=== PATIENT | female | born 1970 | race Caucasian/White ===

== ENCOUNTER 2016-10-20 22:05 | Emergency (ER) | payer MEDICAID ==
[~2016-10-20] VITALS: Ht 160 cm; Wt 86.2 kg
[~2016-10-20 22:05] MED LIST: PROAIR HFA0.09 MG/Ac IH
[2016-10-20 22:30] VITALS: BP 133/95
--- NOTE | 2016-10-20 22:57 | NUR ---
46 Y/O HERE W/C/O SOB, HEADACHES AND BACK PAIN X DAY. SLIGHTLY WHEEZES ON BILATERAL UPPER LOBES NOTED. NO NASAL FLARING OR OTHER SIGNS OF RESP DISTRESS NOTED AT THIS MOMENT. O2 SAT 99 %. ER MD AWARED OF IT.
--- NOTE | 2016-10-20 22:58 | NUR ---
Germania edwards in [facility] - 10/21/16 at 0016 by MEDZAK TO ER BED7
--- NOTE | 2016-10-20 23:07 | NUR ---
Patient being evaluated by physician at bedside.
[2016-10-20] MEDS ORDERED: ALBUTEROL SULFATE/IPRATROPIU 3 ML SOL IH ONE (23:10)
[2016-10-20] MEDS ORDERED: methylPREDNISolone SS 125 MG in WATER STERILE 2 ML IM ONE (23:15)
[2016-10-20 23:59] VITALS: BP 141/97
--- NOTE | 2016-10-20 23:59 | NUR ---
Patient discharged with v/s stable. Written and verbal after care instructions given and explained. Patient alert, oriented and verbalized understanding of instructions. Ambulatory with steady gait. All questions addressed prior to discharge. ID band removed. Patient advised to follow up with PMD. Rx of PREDNISONE AND ALBUTEROL SULFATE given. Patient educated on indication of medication including possible reaction and side effects. Opportunity to ask questions provided and answered.
== END 2016-10-20 23:59 | disposition home or self-care (01) ==
LOC: MED 22:14
DX: J45.901 Unspecified asthma with (acute) exacerbation (principal); R03.0 Elevated blood-pressure reading, without diagnosis of hypertension; E11.9 Type 2 diabetes mellitus without complications; K21.9 Gastro-esophageal reflux disease without esophagitis; Z88.0 Allergy status to penicillin; Z88.5 Allergy status to narcotic agent
CPT/HCPCS: 81002; 81025; 94640; 96372; 99283; J2930; J7620

== ENCOUNTER 2016-12-07 19:21 | Emergency (ER) | payer MEDICAID ==
[~2016-12-07] VITALS: Ht 160 cm; Wt 54.4 kg
[2016-12-07 19:36] VITALS: BP 142/98
--- NOTE | 2016-12-07 21:13 | NUR ---
TO ER OF1
--- NOTE | 2016-12-07 21:15 | NUR ---
46Y/F PATIENT PRESENTS TO ED WITH C/O FLU LIKE SYMPTOMS X 1 DAY . PT STATES COUGH, BODY ACHE AND EPISODE OF NASAL CONGESTION. DENIES N/V/D; SKIN IS PINK/WARM/DRY; AAOX4 WITH EVEN AND STEADY GAIT; LUNGS CLEAR BL; HR EVEN AND REGULAR; PT DENIES ANY FEVER, CP, SOB, OR COUGH AT THIS TIME; PATIENT STATES PAIN OF 4/10 AT THIS TIME; VSS; ER MD MADE AWARE OF PT STATUS.
[2016-12-07] MEDS ORDERED: KETOROLAC 30 MG/ML VIAL IM ONE (21:20)
[2016-12-07] MEDS ORDERED: ALBUTEROL SULFATE/IPRATROPIU 3 ML SOL IH ONE (21:20)
--- NOTE | 2016-12-07 21:20 | NUR ---
Patient being evaluated by DR. TAVERAS at bedside.
--- NOTE | 2016-12-07 22:10 | NUR ---
Patient discharged with v/s stable. Written and verbal after care instructions given and explained. Patient alert, oriented and verbalized understanding of instructions. Ambulatory with steady gait. All questions addressed prior to discharge. ID band removed. Patient advised to follow up with PMD. Rx of ALBUTEROL 90 MCG/ACTUATION, NAPROSYN 500 MG given. Patient educated on indication of medication including possible reaction and side effects. Opportunity to ask questions provided and answered.
[2016-12-07 22:12] VITALS: BP 121/81
== END 2016-12-07 22:10 | disposition home or self-care (01) ==
LOC: MED 19:21
PROC: 3E0F7GC Introduction of Other Therapeutic Substance into Respiratory Tract, Via Natural or Artificial Opening (ICD-10-PCS; principal; 2016-12-07)
DX: J45.909 Unspecified asthma, uncomplicated (principal); R51 Headache
CPT/HCPCS: 71010; 93005; 94640; 96372; 99284; J1885; J7620

== ENCOUNTER 2017-05-05 05:40 | Emergency (ER) | payer MEDICAID ==
[~2017-05-05] VITALS: Ht 157.5 cm; Wt 58.5 kg
[~2017-05-05 05:40] MED LIST changes: +ALBU-136 IH; -PROAIR HFA0.09 MG/Ac IH
[2017-05-05 05:43] VITALS: BP 118/84
[2017-05-05] MEDS ORDERED: LORazepam 1 MG TAB PO ONE (06:00)
[2017-05-05 07:15] VITALS: BP 118/84
== END 2017-05-05 07:15 | disposition home or self-care (01) ==
LOC: MED 05:40
DX: F41.0 Panic disorder [episodic paroxysmal anxiety] (principal); R06.02 Shortness of breath; J45.909 Unspecified asthma, uncomplicated; E11.9 Type 2 diabetes mellitus without complications; K21.9 Gastro-esophageal reflux disease without esophagitis; Z88.0 Allergy status to penicillin; Z88.5 Allergy status to narcotic agent; Z88.8 Allergy status to other drugs, medicaments and biological substances; Z79.899 Other long term (current) drug therapy
CPT/HCPCS: 99283; 99284

== ENCOUNTER 2017-05-23 09:35 | Emergency (ER) | payer MEDICAID ==
[~2017-05-23] VITALS: Ht 160 cm; Wt 57.2 kg
[2017-05-23 09:46] VITALS: BP 144/66
[2017-05-23 10:47] VITALS: BP 123/72
== END 2017-05-23 10:47 | disposition home or self-care (01) ==
LOC: MED 09:35
DX: J11.1 Influenza due to unidentified influenza virus with other respiratory manifestations (principal); J45.909 Unspecified asthma, uncomplicated; E11.9 Type 2 diabetes mellitus without complications; K21.9 Gastro-esophageal reflux disease without esophagitis; Z88.0 Allergy status to penicillin; Z88.5 Allergy status to narcotic agent; Z88.6 Allergy status to analgesic agent
CPT/HCPCS: 81002; 81025; 99283

== ENCOUNTER 2017-05-26 06:30 | Emergency (ER) | payer MEDICAID ==
[~2017-05-26] VITALS: Ht 167.6 cm; Wt 57.2 kg
[2017-05-26 06:35] VITALS: BP 124/77
[2017-05-26] MEDS: ALBUTEROL SULFATE/IPRATROPIU 3 ML SOL IH ONE (08:48)
[2017-05-26] MEDS: cefTRIAXone 1,000 MG in LIDOCAINE 1% ED 2.1 ML IM ONE (08:55)
[2017-05-26] MEDS: methylPREDNISolone SS 125 MG in WATER STERILE 2 ML IM ONE (08:56)
[2017-05-26 09:49] VITALS: BP 117/74
== END 2017-05-26 09:49 | disposition home or self-care (01) ==
LOC: MED 06:30
DX: J45.909 Unspecified asthma, uncomplicated (principal); Z88.0 Allergy status to penicillin; Z88.5 Allergy status to narcotic agent; Z88.6 Allergy status to analgesic agent; G43.909 Migraine, unspecified, not intractable, without status migrainosus; F41.9 Anxiety disorder, unspecified; K21.9 Gastro-esophageal reflux disease without esophagitis
CPT/HCPCS: 71010; 94640; 96372; 99284; J0696; J2001; J2930; J7620; Q0092

== ENCOUNTER 2017-06-28 06:15 | Emergency (ER) | payer MEDICAID ==
[~2017-06-28] VITALS: Ht 160 cm; Wt 55.8 kg
[2017-06-28 06:25] VITALS: BP 165/80
--- NOTE | 2017-06-28 06:30 | NUR ---
PATIENT PRESENTS TO ED WITH COUGH X1 DAY, WORSE TODAY AT 0500, C/O THROAT TIGHTNESS, NO DROOLING NOTED, CLEAR SPEEH HX ASTHMA, MIGRAINE, BRONCHITIS, HYPOTHYROID PT DENIES N/V/D; SKIN IS PINK/WARM/DRY; AAOX4 WITH EVEN AND STEADY GAIT; HR EVEN AND REGULAR; PT DENIES ANY FEVER, CP, SOB AT THIS TIME; PATIENT STATES PAIN OF 5/10 AT THIS TIME; VSS; PATIENT POSITIONED FOR COMFORT; HOB ELEVATED; BEDRAILS UP X2; BED DOWN. ER MD MADE AWARE OF PT STATUS.
--- NOTE | 2017-06-28 06:30 | NUR ---
Patient ambulated to bed 09.
[2017-06-28] MEDS ORDERED: methylPREDNISolone SS 125 MG/2 ML VIAL IM ONE (06:55)
[2017-06-28] MEDS ORDERED: ALBUTEROL SULFATE/IPRATROPIU 3 ML SOL IH ONE (06:55)
--- NOTE | 2017-06-28 07:08 | NUR ---
REPORT TO SHANIA SANDERS
--- NOTE | 2017-06-28 07:09 | NUR ---
RECEIVED REPORT FROM SHANIA IQBAL. RT AT BEDSIDE FOR BREATHING TREATMENT. PT AAO X4 ,LUNGS SMALL DIMINISHED.WILL CONTINUE TO MONITOR.
--- NOTE | 2017-06-28 07:09 | NUR ---
Note grace in EDM - 06/28/17 at 0722 by [facility] RECEOVED REPORT FROM SHANIA IQBAL. RT AT BEDSIDE FOR BREATHING TREATMENT. PT AAO X4 ,LUNGS SMALL DIMINISHED.WILL CONTINUE TO MONITOR.
--- NOTE | 2017-06-28 07:44 | NUR ---
x ray at bedside.
--- NOTE | 2017-06-28 07:57 | NUR ---
Patient appears to be resting comfortably in bed. Vital Signs within normal limits. Respirations even and unlabored.WILL CONTINUE TO MONITOR.
[2017-06-28 08:26] VITALS: BP 128/81
--- NOTE | 2017-06-28 08:26 | NUR ---
Patient discharged with v/s stable. Written and verbal after care instructions given and explained. Patient alert, oriented and verbalized understanding of instructions. Ambulatory with steady gait. All questions addressed prior to discharge. ID band removed. Patient advised to follow up with PMD. Rx of ZYRTEC given. Patient educated on indication of medication including possible reaction and side effects. Opportunity to ask questions provided and answered.
--- NOTE | 2017-06-28 08:30 | NUR ---
Note grace in EDM - 06/28/17 at 0837 by [facility] Patient discharged with v/s stable. Written and verbal after care instructions given and explained. Patient alert, oriented and verbalized understanding of instructions. Ambulatory with steady gait. All questions addressed prior to discharge. ID band removed. Patient advised to follow up with PMD. Rx of DEPAKOTE given. Patient educated on indication of medication including possible reaction and side effects. Opportunity to ask questions provided and answered.
== END 2017-06-28 08:26 | disposition home or self-care (01) ==
LOC: MED 06:15
DX: J45.909 Unspecified asthma, uncomplicated (principal); R06.2 Wheezing; J30.89 Other allergic rhinitis; Z79.899 Other long term (current) drug therapy; Z88.0 Allergy status to penicillin; Z88.5 Allergy status to narcotic agent; Z88.8 Allergy status to other drugs, medicaments and biological substances
CPT/HCPCS: 71010; 94640; 96372; 99283; J2930; J7620

== ENCOUNTER 2017-07-01 05:50 | Emergency (ER) | payer MEDICAID ==
[~2017-07-01] VITALS: Ht 160 cm; Wt 54.9 kg
[2017-07-01 05:54] VITALS: BP 131/82
--- NOTE | 2017-07-01 05:59 | NUR ---
PT TAKEN TO BED 11
--- NOTE | 2017-07-01 06:05 | NUR ---
came in with c/o cough,since wednesday, and sob started this morning,
--- NOTE | 2017-07-01 06:05 | NUR ---
Dr. Gilliland evaluating patient at bedside.
[2017-07-01] MEDS ORDERED: ALBUTEROL SULFATE/IPRATROPIU 3 ML SOL IH ONE (06:10)
[2017-07-01] MEDS ORDERED: methylPREDNISolone SS 125 MG/2 ML VIAL IM ONE (06:10)
--- NOTE | 2017-07-01 06:12 | NUR ---
RT AT BEDSIDE , ADMINISTERING BREATHING TREATMENT.
[2017-07-01 07:07] VITALS: BP 129/78
--- NOTE | 2017-07-01 07:07 | NUR ---
Patient discharged with v/s stable. Written and verbal after care instructions given and explained. Patient alert, oriented and verbalized understanding of instructions. Ambulatory with steady gait. All questions addressed prior to discharge. ID band removed. Patient advised to follow up with PMD. Rx of PREDNISONE, ATROVENT given. Patient educated on indication of medication including possible reaction and side effects. Opportunity to ask questions provided and answered.
== END 2017-07-01 07:07 | disposition home or self-care (01) ==
LOC: MED 05:50
DX: J45.901 Unspecified asthma with (acute) exacerbation (principal); J06.9 Acute upper respiratory infection, unspecified; E11.9 Type 2 diabetes mellitus without complications; K21.9 Gastro-esophageal reflux disease without esophagitis; Z88.0 Allergy status to penicillin; Z88.5 Allergy status to narcotic agent; Z88.6 Allergy status to analgesic agent
CPT/HCPCS: 94640; 94760; 96372; 99283; J2930; J7620

== ENCOUNTER 2017-07-15 19:11 | Emergency (ER) | payer MEDICAID ==
[~2017-07-15] VITALS: Ht 157.5 cm; Wt 55.8 kg
[2017-07-15 19:15] VITALS: BP 156/79
--- NOTE | 2017-07-15 19:18 | NUR ---
PT TAKEN TO BED 11.
--- NOTE | 2017-07-15 19:20 | NUR ---
47/F CAME IN W C/O CHEST PAIN 03/08, ACUTE ONSET, NONPROVOKED, NONRADIATING CONSTANT "PRESSURE" SINCE THIS MORNING. PT ALSO C/O OF HEADACHE AND BACK PAIN. REPORTS CHEST TIGHTNESS AND SOB, 18RR EVEN AND UNLABORED, SPEAKS AT FULL LENGTH WITHOUT DIFFICULTY, ALL LUNG SOUNDS CBTA, 99% RA, 86 HR EVEN AND REGULAR. PT NONDIAPHORETIC. PT REPORTS SHE TOOK TYLENOL THIS AM AND HELPED WITH HEADACHE. PT TOOK VENTOLIN INH BEFORE ER VISIT AND STATED MINIMAL RELIEF OF SYMPTOMS. PT PLACED ON CARDIAC MONITORING PMH: ASTHMA, HYPOTHYROIDISM
--- NOTE | 2017-07-15 19:42 | NUR ---
Patient being evaluated by physician at bedside.
[2017-07-15] MEDS ORDERED: ALBUTEROL SULFATE/IPRATROPIU 3 ML SOL IH ONE (19:45)
[2017-07-15] MEDS ORDERED: methylPREDNISolone SS 125 MG in WATER STERILE 2 ML IM ONE (19:45)
[2017-07-15 20:53] VITALS: BP 134/72
== END 2017-07-15 20:05 | disposition home or self-care (01) ==
LOC: MED 19:11
DX: J45.909 Unspecified asthma, uncomplicated (principal); R03.0 Elevated blood-pressure reading, without diagnosis of hypertension; E11.9 Type 2 diabetes mellitus without complications; K21.9 Gastro-esophageal reflux disease without esophagitis; E03.9 Hypothyroidism, unspecified; Z79.899 Other long term (current) drug therapy; Z88.0 Allergy status to penicillin; Z88.5 Allergy status to narcotic agent; Z88.8 Allergy status to other drugs, medicaments and biological substances
CPT/HCPCS: 93005; 94640; 94760; 96372; 99283; J2930; J7620

== ENCOUNTER 2017-12-07 06:00 | Emergency (ER) | payer MEDICAID ==
[~2017-12-07] VITALS: Ht 160 cm; Wt 57.2 kg
[2017-12-07 06:03] VITALS: BP 130/69
--- NOTE | 2017-12-07 06:15 | NUR ---
PT.AMBULATED TO ER BED 2
--- NOTE | 2017-12-07 06:16 | NUR ---
Pt presents to ED with red raised rash rash to right cheeck and brow, redness spreading to left cheeck, and 4cm area on righ upper arm. Pt states pain 2/10 with burning and itching. Pt states unkonw cause of rash. Pt states no respiratory distress, no SOB or dyspnea. VSS. A&Ox4. Skin warm and dry. ER MD aware. Continue to monitor.
[2017-12-07] MEDS ORDERED: diphenhydrAMINE 50 MG CAP PO ONE (06:20)
[2017-12-07] MEDS ORDERED: predniSONE 20 MG TAB PO ONE (06:45)
[2017-12-07 06:48] VITALS: BP 130/69
--- NOTE | 2017-12-07 06:48 | NUR ---
Patient discharged with v/s stable. Written and verbal after care instructions given and explained. Patient alert, oriented and verbalized understanding of instructions. Ambulatory with steady gait. All questions addressed prior to discharge. ID band removed. Patient advised to follow up with PMD. Rx of Prednisone and Benadryl given. Patient educated on indication of medication including possible reaction and side effects. Opportunity to ask questions provided and answered.
== END 2017-12-07 06:48 | disposition home or self-care (01) ==
LOC: MED 06:00
DX: R21 Rash and other nonspecific skin eruption (principal); J45.909 Unspecified asthma, uncomplicated; J21.9 Acute bronchiolitis, unspecified; E11.9 Type 2 diabetes mellitus without complications; Z88.0 Allergy status to penicillin; Z88.5 Allergy status to narcotic agent; Z88.6 Allergy status to analgesic agent; Z91.041 Radiographic dye allergy status
CPT/HCPCS: 99283; J7512; Q0163

== ENCOUNTER 2018-02-28 05:50 | Emergency (ER) | payer MEDICAID ==
[~2018-02-28] VITALS: Ht 160 cm; Wt 59.0 kg
[2018-02-28 05:56] VITALS: BP 150/88
--- NOTE | 2018-02-28 06:00 | NUR ---
PT AMBULATED TO BED 8
[2018-02-28 06:03] VITALS: BP 145/79
--- NOTE | 2018-02-28 06:03 | NUR ---
47 Y/O F BIB DAUGHTER W/C/O SOB, SORE THROAT, AND BACK PAIN SINCE LAST NIGHT. PT AAOX4, ON ROOM AIR. NO S/S OF DISTRESS NOTED. RR EVEN/UNLABORED. PT DENIES N/V/D. PT STATES PAIN IS 6/10 IN LOWER BACK THAT IS ACHING AND RADIATES TO UPPER BACK. O2 SAT: 98% ON ROOM AIR. PT STATES ONLY PMH IS ASTHMA. ALLERGIES TO IBPROHIN, PENECILLINS, AND COEDINE. ER MADE AWARE
--- NOTE | 2018-02-28 06:11 | NUR ---
Dr. Block evaluating patient at bedside.
--- NOTE | 2018-02-28 06:21 | NUR ---
Patient discharged BY DR. GARCIA with v/s stable. Written and verbal after care instructions given and explained. Patient alert, oriented and verbalized understanding of instructions. Ambulatory with steady gait. All questions addressed prior to discharge. ID band removed. Patient advised to follow up with PMD. Rx of BIAXIN FILMTAB 500MG given. Patient educated on indication of medication including possible reaction and side effects. Opportunity to ask questions provided and answered.
== END 2018-02-28 06:21 | disposition home or self-care (01) ==
LOC: MED 05:50
DX: J20.9 Acute bronchitis, unspecified (principal); J45.909 Unspecified asthma, uncomplicated; E11.9 Type 2 diabetes mellitus without complications; K21.9 Gastro-esophageal reflux disease without esophagitis; E07.9 Disorder of thyroid, unspecified; Z88.6 Allergy status to analgesic agent; Z88.0 Allergy status to penicillin
CPT/HCPCS: 99283

== ENCOUNTER 2018-05-31 06:09 | Emergency (ER) | payer MEDICAID ==
[~2018-05-31] VITALS: Ht 157.5 cm; Wt 59.0 kg
[2018-05-31 06:14] VITALS: BP 136/82
--- NOTE | 2018-05-31 06:17 | NUR ---
TO BED # 3 AMBULATORY.
--- NOTE | 2018-05-31 06:25 | NUR ---
PT TAKEN TO BED 8
[2018-05-31] MEDS ORDERED: ALBUTEROL SULFATE/IPRATROPIU 3 ML SOL IH ONE (06:30)
--- NOTE | 2018-05-31 06:43 | NUR ---
Respiratory Therapist at bedside for respiratory intervention.
--- NOTE | 2018-05-31 07:15 | NUR ---
received report from rakesh ortiz for continuity of care.
--- NOTE | 2018-05-31 07:37 | NUR ---
dr ramos at bed side for pt evaluation
[2018-05-31 07:47] VITALS: BP 132/81
--- NOTE | 2018-05-31 07:49 | NUR ---
Patient discharged with v/s stable. Written and verbal after care instructions given and explained. Patient alert, oriented and verbalized understanding of instructions. Ambulatory with steady gait. All questions addressed prior to discharge. ID band removed. Patient advised to follow up with PMD. Rx of PREDNISONE/ZANTAC/ALBUTEROL given. Patient educated on indication of medication including possible reaction and side effects. Opportunity to ask questions provided and answered.
== END 2018-05-31 07:49 | disposition home or self-care (01) ==
LOC: MED 06:09
DX: J45.901 Unspecified asthma with (acute) exacerbation (principal); K21.9 Gastro-esophageal reflux disease without esophagitis; E11.9 Type 2 diabetes mellitus without complications; Z88.0 Allergy status to penicillin; Z88.5 Allergy status to narcotic agent; Z88.6 Allergy status to analgesic agent
CPT/HCPCS: 94640; 99283; J7620

== ENCOUNTER 2018-06-13 21:14 | Emergency (ER) | payer MEDICAID ==
[~2018-06-13] VITALS: Ht 160 cm; Wt 59.0 kg
[2018-06-13 21:17] VITALS: BP 140/74
[2018-06-13] MEDS ORDERED: ALBU0.0912 IH (21:23)
[2018-06-13] MEDS ORDERED: predniSONE 20 MG TAB PO ONE (22:25)
[2018-06-13] MEDS ORDERED: ALBUTEROL SULFATE/IPRATROPIU 3 ML SOL IH ONE (22:25)
[2018-06-13 23:16] VITALS: BP 145/79
== END 2018-06-13 23:57 | disposition home or self-care (01) ==
LOC: MED 21:14
DX: J45.21 Mild intermittent asthma with (acute) exacerbation (principal); J44.9 Chronic obstructive pulmonary disease, unspecified; Z88.0 Allergy status to penicillin; Z88.6 Allergy status to analgesic agent; Z79.899 Other long term (current) drug therapy
CPT/HCPCS: 71045; 99283; J7512; J7620; 94640

== ENCOUNTER 2018-08-02 16:38 | Emergency (ER) | payer MEDICAID ==
[~2018-08-02] VITALS: Ht 162.6 cm; Wt 59.9 kg
[~2018-08-02 16:38] MED LIST changes: -ALBU-136 IH; +ALBU0.0912 IH
[2018-08-02 16:41] VITALS: BP 115/83
--- NOTE | 2018-08-02 16:45 | NUR ---
48 YO F BIB DAUGHTER W/ C/O DRY COUGH AND HEADACHE X TODAY AND CHEST DISCOMORT. PT STATES SHE FEELS VERY COL. NO FEVER AT THIS TIME. "I FEEL LIKE I CANT CATCH MY BREATH AND THERE IS PRESSURE". PT AAOX4, GCS 15. SPEAKING IN FULL, COMPLETE SENTENCES. RR EVEN AND UNLABORED, LUNGS BL CLEAR. BED DOWN, BEDRAIL UP X 1, ER MD AWARE AND NOTIFIED OF PT STATUS. HX ASTHMA RX INHALER
[2018-08-02] MEDS ORDERED: ALBUTEROL 0.083% 2.5 MG/3 ML NEBU INH ONE (17:25)
[2018-08-02] MEDS ORDERED: ACETAMINOPHEN 325 MG TAB PO ONE (17:25)
--- NOTE | 2018-08-02 17:25 | NUR ---
Patient being evaluated by physician at bedside.
--- NOTE | 2018-08-02 17:30 | NUR ---
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
--- NOTE | 2018-08-02 17:35 | NUR ---
PT GETTING BREATHING TREATMENT FROM RT
[2018-08-02 19:40] VITALS: BP 112/73
--- NOTE | 2018-08-02 19:41 | NUR ---
Patient discharged with v/s stable. Written and verbal after care instructions given and explained. Patient alert, oriented and verbalized understanding of instructions. Ambulatory with steady gait. All questions addressed prior to discharge. ID band removed. Patient advised to follow up with PMD. Rx of PROMETHAZINE, TYLENOL, ALBUTEROL given. Patient educated on indication of medication including possible reaction and side effects. Opportunity to ask questions provided and answered.
== END 2018-08-02 19:40 | disposition home or self-care (01) ==
LOC: MED 16:38
DX: M79.10 Myalgia, unspecified site (principal); R68.83 Chills (without fever); R05 Cough; R06.02 Shortness of breath; R09.89 Other specified symptoms and signs involving the circulatory and respiratory systems; J44.9 Chronic obstructive pulmonary disease, unspecified; Z88.5 Allergy status to narcotic agent; Z88.0 Allergy status to penicillin; Z88.8 Allergy status to other drugs, medicaments and biological substances; Z79.899 Other long term (current) drug therapy
CPT/HCPCS: 36415; 87804; 94640; 99283; J7613

== ENCOUNTER 2018-08-04 05:30 | Emergency (ER) | payer MEDICAID ==
[~2018-08-04] VITALS: Ht 157.5 cm; Wt 59.0 kg
[2018-08-04 05:41] VITALS: BP 127/84
--- NOTE | 2018-08-04 05:41 | NUR ---
PT PRESENTS TO ED WITH AUDIBLE EXPIRATORY WHEEZING IN BILAT UPPER LOBES. O2SAT 99% AT RA. PT STATES HOME MEDICATIONS NO HELPFUL. VSS. POSITIONED IN BED FOR COMFORT. ER MD AWARE. CONTINUE TO MONITOR.
--- NOTE | 2018-08-04 05:41 | NUR ---
TO BED # 6 AMBULATORY, REPORT GIVEN TO FENG JAUREGUI
[2018-08-04] MEDS ORDERED: ALBUTEROL SULFATE/IPRATROPIU 3 ML SOL IH ONE (05:50)
--- NOTE | 2018-08-04 05:51 | NUR ---
Respiratory Therapist at bedside for respiratory intervention.
[2018-08-04] MEDS ORDERED: methylPREDNISolone SS 125 MG/2 ML VIAL IM ONE (06:05)
[2018-08-04 06:35] VITALS: BP 127/84
--- NOTE | 2018-08-04 06:35 | NUR ---
Dr. Gilliland evaluating patient at bedside.
== END 2018-08-04 06:35 | disposition home or self-care (01) ==
LOC: MED 05:30
DX: J45.901 Unspecified asthma with (acute) exacerbation (principal); Z88.0 Allergy status to penicillin; Z88.5 Allergy status to narcotic agent; Z88.6 Allergy status to analgesic agent; Z79.51 Long term (current) use of inhaled steroids
CPT/HCPCS: 94640; 96372; 99283; J2930; J7620

== ENCOUNTER 2018-10-17 19:03 | Emergency (ER) | payer MEDICAID ==
[~2018-10-17] VITALS: Ht 160 cm; Wt 62.8 kg
[2018-10-17 19:36] VITALS: BP 147/82
--- NOTE | 2018-10-17 19:39 | NUR ---
PT RETURNED TO LOBBY IN STABLE CONDITION
--- NOTE | 2018-10-17 21:44 | NUR ---
PATIENT PRESENTS TO ED WITH C/O COUGH. PT STATES OUT OF INHALER. ONLY MED HX: ASTHMA. PT STATES COUGH STARTED ABOYUT 4 DAYS AGO. PATIENT STATES PAIN OF 0/10 AT THIS TIME; ONLY C/O COUGH. VSS; PATIENT POSITIONED FOR COMFORT; HOB ELEVATED; BEDRAILS UP X2; BED DOWN. ER MD MADE AWARE OF PT STATUS.
--- NOTE | 2018-10-17 21:44 | NUR ---
PT AMBULATED TO BED 2
[2018-10-17] MEDS ORDERED: DEXAMETHASONE 10 MG/ML VIAL IM ONE (21:55)
[2018-10-17 22:20] VITALS: BP 141/85
--- NOTE | 2018-10-17 22:20 | NUR ---
Patient discharged with v/s stable. Written and verbal after care instructions given and explained. Patient alert, oriented and verbalized understanding of instructions. Ambulatory with steady gait. All questions addressed prior to discharge. ID band removed. Patient advised to follow up with PMD. Rx of MEDROL 4MG, AND MONTELUKAST SODIUM 10MG given. Patient educated on indication of medication including possible reaction and side effects. Opportunity to ask questions provided and answered.
== END 2018-10-17 22:20 | disposition home or self-care (01) ==
LOC: MED 19:03
DX: J45.901 Unspecified asthma with (acute) exacerbation (principal); Z79.899 Other long term (current) drug therapy; Z88.0 Allergy status to penicillin; Z88.5 Allergy status to narcotic agent; Z88.8 Allergy status to other drugs, medicaments and biological substances
CPT/HCPCS: 71045; 81002; 81025; 96372; 99283; J1100

== ENCOUNTER 2018-10-23 20:00 | Emergency (ER) | payer MEDICAID ==
[~2018-10-23] VITALS: Ht 160 cm; Wt 61.2 kg
[2018-10-23 20:05] VITALS: BP 135/85
--- NOTE | 2018-10-23 20:55 | NUR ---
PT AMBULATED TO BED 8
--- NOTE | 2018-10-23 21:28 | NUR ---
PT BIB FOR RASH AROUND FACE X1 WEEK. PT REPORTS NON-RADIATING BURNING/IRRITATING PAIN AROUND FACIAL RASH AT 8/10 STARTING 5 HOURS AGO, PT APPLIED HYDROCORTIZONE CREAM TO RASH WITH NO RELIEF. RASH CONSIST OF SMALL RAISED, RED SPOTS UNDER EYES. PT IN NO ACUTE DISTRESS, AIRWAY PATENT, RR SYMMETRICAL, NON LABORED WITH BREATH SOUNDS CLEAR. PT DENIES ANY NEW DETERGENT, CLOTHING, FOOD, OR MEDICATIONS. VSS. ER MD TO SEE PT.
[2018-10-23 22:06] VITALS: BP 120/81
--- NOTE | 2018-10-23 22:06 | NUR ---
Patient discharged with v/s stable. Written and verbal after care instructions given and explained. Patient alert, oriented and verbalized understanding of instructions. Ambulatory with steady gait. All questions addressed prior to discharge. ID band removed. Patient advised to follow up with PMD. Rx of HYDROCORTISONE, DOPHENHYDRAMINE, AND TOBRAMYCIN given. Patient educated on indication of medication including possible reaction and side effects. Opportunity to ask questions provided and answered.
== END 2018-10-23 22:06 | disposition home or self-care (01) ==
LOC: MED 20:00
DX: T78.40XA Allergy, unspecified, initial encounter (principal); R21 Rash and other nonspecific skin eruption; J45.909 Unspecified asthma, uncomplicated; Z88.0 Allergy status to penicillin; Z88.5 Allergy status to narcotic agent; Z88.8 Allergy status to other drugs, medicaments and biological substances; Z79.899 Other long term (current) drug therapy; X58.XXXA Exposure to other specified factors, initial encounter
CPT/HCPCS: 99283

== ENCOUNTER 2019-02-11 14:46 | Inpatient (IN) | payer MEDICAID ==
[~2019-02-11] VITALS: Ht 160 cm; Wt 60.8 kg
[2019-02-11 14:56] VITALS: BP 129/69
--- NOTE | 2019-02-11 14:58 | NUR ---
Patient to bed 8. RN evaluating patient at bedside.
--- NOTE | 2019-02-11 15:00 | NUR ---
PATIENT PRESENTS TO ED WITH ABDOMINAL PAIN RADIATING TO UPPER BACK; FREQUENCY AND BURNING WHEN URINATING. DENIES N/V/D; PT DENIES ANY FEVER; AFEBRILE AT THIS TIME; PATIENT STATES PAIN OF 10/10; POSITIONED FOR COMFORT; HOB ELEVATED; BEDRAILS UP X1; BED DOWN. PENDING ER MD EVALUATION.
[2019-02-11] MEDS ORDERED: NACL 0.9% 500 ML IV ONE (15:05)
[2019-02-11] MEDS ORDERED: ONDANSETRON 4 MG/2 ML VIAL IVP ONE (15:05)
[2019-02-11] MEDS ORDERED: fentaNYL 0.05 MG/ML VIAL IVP ONE (15:05)
--- NOTE | 2019-02-11 15:20 | NUR ---
US tech at bedside.
[2019-02-11 15:34] LABS: BASOPHILS # (AUTO) 0.1 K/uL (0.00-0.22); EOSINOPHILS # (AUTO) 0.2 K/uL (0-0.4); EOSINOPHILS % (AUTO) 2.8 % (0.0-4.0); HEMATOCRIT 35.9 % (36-48); HEMOGLOBIN 11.5 g/dL (12.0-16.0); LYMPHOCYTES % (AUTO) 23.5 % (20.5-51.1); MEAN CORPUSCULAR HEMOGLOBIN 26 pg (27-31); MEAN CORPUSCULAR HGB CONC 32 g/dL (33-37); MEAN CORPUSCULAR VOLUME 80.1 fL (80-94); MONOCYTES # (AUTO) 0.5 K/uL (0.8-1.0); NEUTROPHILS # (AUTO) 5.6 K/uL (1.8-7.7); NEUTROPHILS % (AUTO) 66.7 % (42.2-75.2); PLATELET COUNT (AUTO) 380 K/uL (140-450); RED BLOOD CELL COUNT(AUTO) 4.48 MIL/uL (4.20-5.40); RED CELL DISTRIBUTION WIDTH 17.6 % (11.6-13.7); WHITE BLOOD COUNT (AUTO) 8.3 K/uL (4.8-10.8)
--- NOTE | 2019-02-11 15:45 | NUR ---
IVP MEDS AND IVF ADMINISTERED ORDERED. NADR AT THIS TIME.
[2019-02-11 15:46] LABS: ANION GAP 9.9 (8-16); CARBON DIOXIDE 27.6 mmol/L (21-32); CREATININE 0.7 mg/dL (0.6-1.3); POTASSIUM 3.5 mmol/L (3.5-5.1); TOTAL BILIRUBIN 1.8 mg/dL (0.0-1.0)
[2019-02-11] MEDS ORDERED: DOCUSATE SODIUM 100 MG GELCAP PO PRN (16:40)
[2019-02-11] MEDS ORDERED: LORazepam 2 MG/ML VIAL IM/IVP PRN (16:40)
[2019-02-11] MEDS ORDERED: ACETAMINOPHEN 325 MG TAB PO PRN (16:40)
--- NOTE | 2019-02-11 16:50 | NUR ---
PT VERBALIZED A DECREASE IN PAIN TO 4/10 AFTER PAIN MEDICATION ADMINISTRATION. PT RESTING COMFORTABLY IN BED. VSS.
--- NOTE | 2019-02-11 17:16 | NUR ---
Patient admitted to care of Dr. Stanley. Admited to Med Surg; Room 119B. Report to SHANIA Valentine.
[2019-02-11 17:24] LABS: PROTHROMBIN TIME 9.1 secs (10.8-13.4)
--- NOTE | 2019-02-11 17:30 | NUR ---
PATIENT ARRIVED FROM ER, ABLE TO AMBULATE FROM ER BED TO [facility] BED WITH STEADY GAIT. NO DISTRESS NOTED. V/S STABLE. PAIN WITHIN TOLERABLE. AAOX4, CALM, COOPERATIVE, SKIN COLOR APPROPRIATE TO ETHNICITY, WARM TO TOUCH. IV SITE INTACT, PATENT, AND INFUSING IVF PER MD ORDERS. ORIENTED PATIENT TO ROOM AND CALL LIGHT. REVIEWED PLAN OF CARE WITH PATIENT. PATIENT VERBALIZED UNDERSTANDING. SAFETY MEASURES IN PLACE, CALL LIGHT WITHIN REACH. WILL CONTINUE TO MONITOR.
[2019-02-11 17:50] LABS: MAGNESIUM 2.2 mg/dL (1.8-2.4); PHOSPHORUS 2.4 mg/dL (2.5-4.9); THYROID STIMULATING HORMONE 3.19 uIU/mL (0.34-3.74)
[2019-02-11] MEDS: DEXT 5% / NACL 0.45% 1,000 ML IV SCH (18:38)
--- NOTE | 2019-02-11 19:00 | NUR ---
RECEIVED BEDSIDE REPORT FROM AM SHIFT NURSE. PT A, O, X 4, W/ FAMILY AT BEDSIDE. 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 SKIN COLOR APPROPRIATE TO ETHNICITY, WARM TO TOUCH. W/ ONGOING D5 1/2 NS AT 80ML/ HR R AC G 22 PATENT, AND INFUSING WELL. W/ SKIN RASH ON THE FACE NOTED AND EYES. PT HAD HX OF ALLERGIC RXN TO CONTRAST MEDIUM. REVIEWED PLAN OF CARE WITH PATIENT. PATIENT VERBALIZED UNDERSTANDING. SAFETY MEASURES IN PLACE, CALL LIGHT WITHIN REACH. WILL CONTINUE TO MONITOR. Addendum: 02/12/19 at 0348 by Sasha Fuentes RN AMEND TO 1910
--- NOTE | 2019-02-11 19:10 | NUR ---
GAVE REPORT TO TERMITE CONTROL TECHNICIAN NURSE FOR CONTINUITY OF CARE. PATIENT IN STABLE CONDITION.
[2019-02-11 20:00] VITALS: BP 98/65
[2019-02-11 20:33] LABS: APPEARANCE,URINE CLEAR (CLEAR); BILIRUBIN,URINE NEGATIVE (NEGATIVE); BLOOD, URINE NEGATIVE (NEGATIVE); COLOR,URINE YELLOW (YELLOW); LEUKOCYTE ESTERASE ,URINE NEGATIVE (NEGATIVE); NITRITE, URINE NEGATIVE (NEGATIVE); UGLUCOSE NEGATIVE (NEGATIVE)
[2019-02-11 20:53] LABS: BARBITURATE, URINE NEG. ng/ml (NEG <=200); BENZODIAZEPINE, URINE NEG. ng/mL (NEG <=200); CANNABINOID, URINE NEG. ng/mL (NEG <=50); COCAINE, URINE NEG. ng/mL (NEG <=300); OPIATE, URINE NEG. ng/mL (NEG <=2000); PHENCYCLIDINE SCREEN,URINE NEG. ng/mL (NEG <=25)
[2019-02-11] MEDS ORDERED: SODIUM PHOS / POTASSIUM PHOS 1 PKT PDR PO SCH (21:50)
--- NOTE | 2019-02-12 00:47 | NUR ---
PT C/O PAIN RIGHT ABDOMEN RADIATING TOWARDS THE BACK. EXPLAINED TO PT TYLENOL WILL BE GIVEN ORDERED. WILL MONITOR FOR ALLERGIC RXN.
--- NOTE | 2019-02-12 01:47 | NUR ---
PAIN REASSESSMENT DONE,NO ALLERGIC RXN TO TYLENOL. PT STATED PAIN RELIEVED.
--- NOTE | 2019-02-12 03:48 | NUR ---
CHECKED ON PATIENT, PT SLEEPING COMFORTABLY ON HER SIDE, NO COMPLAINTS AT THIS TIME
[2019-02-12 04:00] VITALS: BP 114/78
[2019-02-12] MEDS: DEXT 5% / NACL 0.45% 1,000 ML IV SCH ×2 (06:07→17:39)
--- NOTE | 2019-02-12 06:33 | NUR ---
PATIENT HAS BEEN SCREENED AND CATEGORIZED LOW NUTRITION RISK. PATIENT WILL BE SEEN WITHIN 7 DAYS OF ADMISSION. 02/17/19 FLORINDA SYED MS, RDN
--- NOTE | 2019-02-12 06:49 | NUR ---
DR. NELSON CALLED AND ASKED A FEW QUESTIONS ABOUT THE RECENT LABS, AND THE RESULT OF THE [employer] OF [employer] [place]. HE ORDERED A HYDASCAN STAT. AND KEPT PT NPO ECEPT MEDS
--- NOTE | 2019-02-12 07:18 | NUR ---
ENDORSED TO NEXT SHIFT FOR CONTINUITY OF CARE, PT IN STABLE CONDITION AT THIS TIME; FOR HIDASCAN STAT
--- NOTE | 2019-02-12 07:19 | NUR ---
RECEIVED BEDSIDE REPORT FROM NIGHT NURSE. PT IS RESTING IN BED WITH NO DISTRESS, BREATHING UNLABORED AND SYMMETRICAL. PT DENIES PAIN. PT HAS RIGHT ANTECUBITAL IV THAT IS ASYMPTOMATIC AND PATENT WITH D5 1/2 NS AT 80ML/HR INFUSING. ALL SAFETY MEASURES IN PLACE AND CALL LIGHT WITHIN REACH, PT AOX4.
[2019-02-12] MEDS: ALBUTEROL SULFATE/IPRATROPIU 3 ML SOL IH SCH ×3 (07:55→19:37)
[2019-02-12 08:00] VITALS: BP 118/74
[2019-02-12 08:00] LABS: BASOPHILS % (AUTO) 0.6 % (0.0-2.0); EOSINOPHILS # (AUTO) 0.2 K/uL (0-0.4); EOSINOPHILS % (AUTO) 3.1 % (0.0-4.0); HEMATOCRIT 34.9 % (36-48); HEMOGLOBIN 11.1 g/dL (12.0-16.0); LYMPHOCYTES # (AUTO) 1.9 K/uL (2.5-16.5); LYMPHOCYTES % (AUTO) 30.2 % (20.5-51.1); MEAN CORPUSCULAR HEMOGLOBIN 26 pg (27-31); MEAN CORPUSCULAR HGB CONC 32 g/dL (33-37); MONOCYTES # (AUTO) 0.5 K/uL (0.8-1.0); MONOCYTES % (AUTO) 8.1 % (1.7-9.3); NEUTROPHILS # (AUTO) 3.6 K/uL (1.8-7.7); PLATELET COUNT (AUTO) 347 K/uL (140-450); RED BLOOD CELL COUNT(AUTO) 4.31 MIL/uL (4.20-5.40); RED CELL DISTRIBUTION WIDTH 18.1 % (11.6-13.7); WHITE BLOOD COUNT (AUTO) 6.1 K/uL (4.8-10.8)
[2019-02-12 08:14] LABS: ANION GAP 12.3 (8-16); CARBON DIOXIDE 26.1 mmol/L (21-32); CREATININE 0.6 mg/dL (0.6-1.3); POTASSIUM 3.4 mmol/L (3.5-5.1)
[2019-02-12] MEDS: ASCORBIC ACID 500 MG TAB PO SCH (08:25)
[2019-02-12] MEDS: FERROUS SULFATE 325 MG TABEC PO SCH (08:26)
--- NOTE | 2019-02-12 08:26 | NUR ---
ADMINISTERED MEDICATIONS, PT IS RESTING IN BED WITH MALE VISITOR AT BEDSIDE. PT HAS NO SIGNS OF DISTRESS AT THIS TIME.
[2019-02-12] MEDS ORDERED: POTASSIUM CHLORIDE 10 MEQ TABER PO SCH (09:15)
[2019-02-12] MEDS: ONDANSETRON 4 MG/2 ML VIAL IM/IVP PRN ×3 (09:29→20:45)
--- NOTE | 2019-02-12 09:37 | NUR ---
ADMINISTERED CELIA MEYERS PER MD DR SCHULTZ REQUEST DUE TO REPORTED DRY HEAVING Addendum: 02/12/19 at 1009 by Antonino Faye RN CLARIFICATION* DR STREET NOT DR SCHULTZ
[2019-02-12] MEDS ORDERED: SODIUM PHOS / POTASSIUM PHOS 1 PKT PDR PO SCH (10:00)
[2019-02-12 10:10] LABS: CHOL/HDL RATIO 2.5 (1-4.5)
--- NOTE | 2019-02-12 10:25 | NUR ---
RECEIVED PHONE CALL FROM RADIOLOGY THAT PATIENT HAS HYTA SCAN SCHEDULED FOR 1230 AT 0944. CALLED RADIOLOGY AT 1023 TO CLARIFY IF THIS WOULD CONFLICT WITH PATIENT PREVIOUS ALLERGY TO CONTRAST. THEY SAID THEY WERE NOT SURE. SPOKE WITH DR MOSQUEDA AT THIS TIME AND ASKED HER. SHE SAID SHE WOULD LOOK INTO IT FURTHER.
[2019-02-12 10:40] LABS: MAGNESIUM 2.3 mg/dL (1.8-2.4); PHOSPHORUS 3.1 mg/dL (2.5-4.9)
--- NOTE | 2019-02-12 10:40 | NUR ---
PT REPORTS STOMACH IS FEELING BETTER AND SHE HAS NO OBVIOUS SIGNS OF DISTRESS WITH BREATHING UNLABORED. PT MALE VISITOR STILL AT BEDSIDE. NO REQUESTS AT THIS TIME.
--- NOTE | 2019-02-12 11:17 | NUR ---
DR MACE AT BEDSIDE WITH THIS NURSE AT THIS TIME. Addendum: 02/12/19 at 1132 by Antonino Faye RN PT HAS FOUR VISITORS AT BEDSIDE.
--- NOTE | 2019-02-12 12:21 | NUR ---
PT SITTING UP IN BED STATING THAT HER NAUSEA IS COMING AND GOING. INFORMED HER IF THE ZOFRAN DOES NOT HELP OVER THE NEXT HALF AN HOUR TO INFORM ME.
--- NOTE | 2019-02-12 13:00 | NUR ---
PT REPORTS THE ZOFRAN FROM THE MORNING DID HELP HER AND THE PAIN COMES AND GOES SINCE THEN AND DENIES ANY PAIN AT THIS TIME.
--- NOTE | 2019-02-12 14:13 | NUR ---
PT RESTING IN BED WITH TWO VISITORS AT BEDSIDE. VISITORS AND PT DENY ANY REQUESTS AT THIS TIME. INFORMED THEM THAT RADIOLOGY INFORMED ME THAT THEY HAVE TWO MORE IMAGES TO TAKE FOR THE HYTA SCAN.
--- NOTE | 2019-02-12 14:45 | NUR ---
HYTA SCAN IN PROGRESS NO SOB NOTED SUPERVISOR RECORD PRESS TO ATTEMPT [facility] THERAPY AND RESPIRATORY DRUG AT A LATER TIME
--- NOTE | 2019-02-12 15:17 | NUR ---
PT REPORTS INTERMITTENT NAUSEA AND REQUESTING ZOFRAN AGAIN STATING IT HELPED HER THROUGHOUT THE DAY THUS FAR. NO OTHER REQUESTS, PT BREATHING SYMMETRICAL AND UNLABORED.
[2019-02-12 16:00] VITALS: BP 118/73
[2019-02-12] MEDS ORDERED: MORPHINE SULFATE 2 MG/ML SYR IVP PRN (16:35)
--- NOTE | 2019-02-12 16:35 | NUR ---
NOTIFIED DR MOSQUEDA OF PATIENT COMPLAINING OF BACK AND STOMACH PAIN AND LACK OF BOWEL MOVEMENT TODAY ALONGSIDE PATIENT ALLERGIES ASKING IF THERE IS A PAIN MEDICATION SHE WANTS TO ORDER DUE TO NONE BEING ON PRN AT THIS TIME. SHE INFORMED ME SHE WOULD ORDER MORPHINE AND I WOULD ADMINISTER THE COLACE WELL.
[2019-02-12] MEDS: MORPHINE SULFATE 2 MG/ML SYR IVP PRN ×2 (16:58→23:27)
--- NOTE | 2019-02-12 17:05 | NUR ---
ADMINISTERED MORPHINE PER RECOMMENDATION OF DR MOSQUEDA. ALSO ADMINISTERED COLACE DUE TO PATIENT REPORTED INABILITY TO HAVE A BOWEL MOVEMENT THIS DAY.
--- NOTE | 2019-02-12 17:29 | NUR ---
WAS CONTACTED BY DR MOSQUEDA WHO REQUESTED IF I COULD CONTACT [facility] TO REQUEST PATIENT RECORDS BE FAXED OVER. CONTACTED THEM AT AND SPOKE WITH THE VINEGAR MAKER AND GAVE THE PATIENT INQUIRY WHO STATED HE PUT IN A REQUEST FOR MEDICAL RECORDS TO CONTACT ME SOON POSSIBLE REGARDING SENDING IT. AT THIS TIME WAITING FOR RETURN PHONE CALL.
--- NOTE | 2019-02-12 17:48 | NUR ---
PT IS RESTING IN BED STATING THAT HER PAIN HAS BEEN DOING BETTER SINCE THE MORPHINE DOSAGE, BUT GETTING UP TO WALK TO THE BATHROOM INCREASE HER PAIN A BIT. INSTRUCTED PATIENT TO REST IN BED AND REPORT TO ME ANY PAIN OUTSIDE OF TOLERATION AFTER RESTING FOR AT LEAST ANOTHER 10 MINUTES (WHICH WOULD BE ONE HOUR FROM LAST PAIN MEDICATION).
--- NOTE | 2019-02-12 18:12 | NUR ---
PATIENT IS STATING SHE IS NOT SURE IF SHE WAS A PATIENT AT [facility] AND IS INSTEAD SAYING IT MIGHT HAVE BEEN [facility] OR [email or web address] VISITOR AT BEDSIDE HELPED PATIENT THROUGH DOCUMENTS FINDING BILLING INFORMATION FOR [facility] STATING THAT IS WHERE SHE BELIEVES SHE WAS A PATIENT. I ATTEMPTED TO CONTACT THEM AND WAS INFORMED THAT THE MEDICAL RECORDS IS CLOSED UNTIL 799 BUT THAT THERE FAX NUMBER IS [phone] AND THAT THEIR DIRECT PHONE NUMBER IS [phone].
--- NOTE | 2019-02-12 19:00 | NUR ---
SENT FAX TO [phone] [facility] FOR REQUEST OF PATIENT INFORMATION PER MD REQUEST.
--- NOTE | 2019-02-12 19:15 | NUR ---
GAVE BEDSIDE REPORT TO NIGHT NURSE PT IN STABLE CONDITION. TOLD NIGHT NURSE OF FAX TO [facility] AND PENDING NEED FOR MEDICAL RECORDS WELL.
--- NOTE | 2019-02-12 19:32 | NUR ---
RECEIVED ENDORSEMENT AT BEDSIDE FROM CRISTIAN JAUREGUI FOR CONTINUITY OF CARE, PT IN STABLE CONDITION.
--- NOTE | 2019-02-12 20:00 | NUR ---
PT IN BED FAMILY AT BED SIDE SIDE RAILS UP X2 AND BED IN LOW POSITION. PT IV SITE ON RAC 22 INTACT AND FLUSHED PATENT. PT HAS D51/2 N/S RUNNING AT 80MLS/HR. SHE IS AOX3-4 AND MICRONESIAN SPEAKING. PT C/O 8/10 PAIN IN ABDOMEN. PT V/S FOLLOWS T 98.9 P 90 R 18 B/P 107/67 02 98% ON ROOM AIR. WILL SPEAK TO RESIDENT MD CONCERNING PT PAIN RELIE.F. PT WAS ABLE TO WALK INDEPENDENTLY TO BED AND BACK , PT C/O THAT IT HURST MORE WITH AMBULATION.
[2019-02-12] MEDS ORDERED: FAMOTIDINE 20 MG TAB PO SCH (21:00)
[2019-02-12] MEDS ORDERED: MORPHINE SULFATE 2 MG/ML SYR IVP SCH (21:00)
--- NOTE | 2019-02-12 21:00 | NUR ---
SPOKE WITH RESIDENT MD ROSS REGARDING PT C/O OF SEVERE PAIN. MD ORDERED X1 STAT MORPHINE 1ML /.5MG IVP OF MORPHINE STAT. PT ALSO GIVEN ZOFRAN FOR NAUSEA. WILL MONITOR FOR EFFECT.
--- NOTE | 2019-02-12 22:00 | NUR ---
PT SLEEPING IN LOW BED WITH SIDE RAILS UP X2 NO S/S OF PAIN OR DISTRESS NOTED.
--- NOTE | 2019-02-12 23:00 | NUR ---
PT AWOKE AND VOMITED ABOUT 150MLS OF BILE. PT C/O OF NAUSEA AND SEVERE PAIN. PT NOTIFIED THAT HER ZOFRAN WASN'T DUE AND ASKED PT IF SHE HAD VOMITED FORM MORPHINE, PT SAID YES THAT MORPHINE MAKES HER NAUSEA . PT ASKED IF SHE STILL WANTED THE PRN MORPHINE FOR PAIN AND PT SAID YES. PT GIVEN MORPHINE IVP FOR C/O OF ABD PAIN 04/08. WILL MONITOR FOR PAIN RELIEF.
[2019-02-13] VITALS: BP 126/66
[2019-02-13] MEDS: ONDANSETRON 4 MG/2 ML VIAL IM/IVP PRN ×2 (01:19→15:40)
--- NOTE | 2019-02-13 01:20 | NUR ---
PT IN BED NO MORE VOMITING NOTED. PT SAID THAT SHE DOES STILL FELL NAUSEA, PT GIVEN IVP/[place] ZOFRAN FOR NAUSEA. WILL MONITOR FOR EFFECT.
--- NOTE | 2019-02-13 03:15 | NUR ---
PT IN BED SLEEPING NO S/S OF PAIN OR DISTRESS NOTED. D51/2 NS RUNNING ORDERED. CALL ABRAMS IN REACH.
[2019-02-13 06:10] LABS: ALBUMIN 2.7 g/dL (3.4-5.0); ANION GAP 14.1 (8-16); CARBON DIOXIDE 25.1 mmol/L (21-32); CREATININE 0.6 mg/dL (0.6-1.3); PHOSPHORUS 2.5 mg/dL (2.5-4.9); POTASSIUM 3.2 mmol/L (3.5-5.1); TOTAL BILIRUBIN 4.8 mg/dL (0.0-1.0)
[2019-02-13] MEDS ORDERED: POTASSIUM CHLORIDE 40 MEQ, LIDOCAINE MPF 1% - 5 mL VIAL 25 MG in NACL 0.9% 250 ML IV ONE (06:25)
[2019-02-13 06:26] LABS: MAGNESIUM 2.1 mg/dL (1.8-2.4)
[2019-02-13 06:35] LABS: BASOPHILS % (AUTO) 0.2 % (0.0-2.0); EOSINOPHILS # (AUTO) 0.1 K/uL (0-0.4); EOSINOPHILS % (AUTO) 1.1 % (0.0-4.0); HEMATOCRIT 35.3 % (36-48); HEMOGLOBIN 11.3 g/dL (12.0-16.0); LYMPHOCYTES # (AUTO) 1.3 K/uL (2.5-16.5); LYMPHOCYTES % (AUTO) 13.5 % (20.5-51.1); MEAN CORPUSCULAR HEMOGLOBIN 26 pg (27-31); MEAN CORPUSCULAR HGB CONC 32 g/dL (33-37); MEAN CORPUSCULAR VOLUME 80.8 fL (80-94); MONOCYTES # (AUTO) 0.8 K/uL (0.8-1.0); MONOCYTES % (AUTO) 7.8 % (1.7-9.3); NEUTROPHILS # (AUTO) 7.7 K/uL (1.8-7.7); NEUTROPHILS % (AUTO) 77.4 % (42.2-75.2); PLATELET COUNT (AUTO) 346 K/uL (140-450); RED BLOOD CELL COUNT(AUTO) 4.37 MIL/uL (4.20-5.40); RED CELL DISTRIBUTION WIDTH 17.7 % (11.6-13.7); WHITE BLOOD COUNT (AUTO) 9.9 K/uL (4.8-10.8)
[2019-02-13] MEDS: DEXT 5% / NACL 0.45% 1,000 ML IV SCH ×2 (06:56→18:39)
--- NOTE | 2019-02-13 07:25 | NUR ---
RECEIVED BEDSIDE REPORT FROM NIGHT NURSE. PT IS AAOX4. PT SKIN IS INTACT. PT IS RESTING IN BED WITH NO DISTRESS, BREATHING UNLABORED AND SYMMETRICAL. PT EXPRESSES PAIN. WILL MEDICATE PT FOR PAIN RELIEF. PT HAS RIGHT ANTECUBITAL IV THAT IS ASYMPTOMATIC AND PATENT WITH D5 1/2 NS AT 80ML/HR INFUSING. ALL SAFETY MEASURES IN PLACE AND CALL LIGHT WITHIN REACH. DISCUSSED POC WITH PT. PT VERBALIZED UNDERSTANDING. WILL ROUND FREQUENTLY ON PT.
--- NOTE | 2019-02-13 07:25 | NUR ---
CARE ENDORSE TO AM SHIFT AT BEDSIDE PT IN STABLE CONDITION.
[2019-02-13] MEDS: ALBUTEROL SULFATE/IPRATROPIU 3 ML SOL IH SCH ×3 (07:43→19:08)
[2019-02-13 08:00] VITALS: BP 113/68
[2019-02-13] MEDS ORDERED: POTASSIUM CHLORIDE 40 MEQ, LIDOCAINE MPF 1% - 5 mL VIAL 25 MG in NACL 0.9% 250 ML IV SCH (08:00)
[2019-02-13] MEDS: FAMOTIDINE 20 MG TAB PO SCH (08:42)
[2019-02-13] MEDS: ASCORBIC ACID 500 MG TAB PO SCH (08:42)
[2019-02-13] MEDS: FERROUS SULFATE 325 MG TABEC PO SCH (08:42)
[2019-02-13] MEDS: MORPHINE SULFATE 2 MG/ML SYR IVP PRN ×2 (08:43→17:34)
--- NOTE | 2019-02-13 08:47 | NUR ---
ADMINISTERED MORNING MEDS TO PT. PT TOLERATED THEM WELL. PT COMPLAINING OF SEVERE PAIN. MORPHINE WAS GIVEN. ALL OTHER NEEDS CURRENTLY MET. PT AT BEDSIDE. INSTRUCTED AND PT TO CALL ME IF IV MACHINE BEGINS TO BEEP SINCE POTASSIUM IS INFUSING AT THIS TIME. PT AND VERBALIZED UNDERSTANDING. BED IN LOW POSITION, CALL LIGHT WITHIN REACH.
[2019-02-13] MEDS ORDERED: SODIUM PHOS / POTASSIUM PHOS 1 PKT PDR PO SCH (09:00)
--- NOTE | 2019-02-13 10:41 | NUR ---
PT SLEEPING IN BED WITH AT BEDSIDE. NO SIGNS OF PAIN AT THIS TIME. WILL CONTINUE TO ROUND FREQUENTLY ON PT. BED IN LOW POSITION, CALL LIGHT WITHIN REACH.
[2019-02-13] MEDS ORDERED: PIPER/TAZO 3.375GM/D5W PREMIX 50 ML IV SCH (12:00)
--- NOTE | 2019-02-13 12:47 | NUR ---
PT RESTING IN BED. NO COMPLAINTS OF PAIN OR DISTRESS AT THIS TIME. WILL CONTINUE TO ROUND FREQUENTLY. BED IN LOW POSITION, CALL LIGHT WITHIN REACH
[2019-02-13] MEDS ORDERED: LEVOFLOXACIN 500 MG/D5W PREMIX 100 ML IV SCH (14:00)
[2019-02-13] MEDS: metroNIDAZOLE 500 MG/NS PREMIX 100 ML IV SCH ×2 (14:05→21:06)
--- NOTE | 2019-02-13 14:27 | NUR ---
PT SLEEPING. NO SIGNS OF PAIN OR DISTRESS NOTED. WILL CONTINUE TO ROUND FREQUENTLY ON PT. BED IN LOW POSITION, CALL LIGHT WITHIN REACH.
[2019-02-13 16:00] VITALS: BP 102/68
--- NOTE | 2019-02-13 16:48 | NUR ---
PT RESTING IN BED WITH AT BEDSIDE. NO COMPLAINTS OF PAIN OR DISTRESS REPORTED BY PT. WILL CONTINUE TO ROUND FREQUENTLY ON PT.
--- NOTE | 2019-02-13 19:45 | NUR ---
ENDORSED PT TO MANAGER SHIFT FOR CONTINUITY OF CARE. PT IN STABLE CONDITION AT THIS TIME.
--- NOTE | 2019-02-13 19:46 | NUR ---
RECEIVED BEDSIDE REPORT FROM PALMIRA JAUREGUI. PT IS ON ROOM AIR RESPIRATIONS ARE EQUAL AND UNLABORED. IV ON RAC 22G IVF PER ORDERS. PT TO BE NPO AFTER MIDNIGHT SURGERY WITH DR NELSON TOMORROW AT 1430 PT IS AWARE. K 3.2 PT RECEIVED K RIDER TODAY. SKIN INTACT. PT IS AMBULATORY PLAN OF CARE DISCUSSED WITH PT AND FAMILY. ALL SAFETY MEASURES ARE IN PLACE. WILL CONTINUE TO MONITOR.
--- NOTE | 2019-02-13 21:06 | NUR ---
SCHEDULED MEDICATION GIVEN. PT TOLERATED WELL. CALL LIGHT WITHIN REACH
[2019-02-13 23:13] VITALS: BP 108/73
--- NOTE | 2019-02-14 | NUR ---
VITAL SIGNS ARE WITHIN NORMAL LIMITS. NO S/S OF DISTRESS. CALL LIGHT WITHIN REACH. WILL CONTINUE TO MONITOR.
--- NOTE | 2019-02-14 02:33 | NUR ---
PT IS SLEEPING COMFORTABLY IN BED. RESPIRATIONS ARE EQUAL AND UNLABORED. CALL LIGHT IS WITHIN REACH.
[2019-02-14] MEDS: metroNIDAZOLE 500 MG/NS PREMIX 100 ML IV SCH ×3 (04:24→20:18)
[2019-02-14] MEDS: DEXT 5% / NACL 0.45% 1,000 ML IV SCH ×2 (04:25→19:39)
[2019-02-14] MEDS: MORPHINE SULFATE 2 MG/ML SYR IVP PRN ×4 (04:47→21:49)
[2019-02-14] MEDS: ALBUTEROL SULFATE/IPRATROPIU 3 ML SOL IH SCH ×3 (06:25→19:24)
[2019-02-14 06:40] LABS: BASOPHILS % (AUTO) 0.4 % (0.0-2.0); EOSINOPHILS # (AUTO) 0.1 K/uL (0-0.4); EOSINOPHILS % (AUTO) 1.3 % (0.0-4.0); HEMATOCRIT 36.2 % (36-48); HEMOGLOBIN 11.5 g/dL (12.0-16.0); LYMPHOCYTES # (AUTO) 1.4 K/uL (2.5-16.5); LYMPHOCYTES % (AUTO) 18.1 % (20.5-51.1); MEAN CORPUSCULAR HEMOGLOBIN 26 pg (27-31); MEAN CORPUSCULAR HGB CONC 32 g/dL (33-37); MEAN CORPUSCULAR VOLUME 80.7 fL (80-94); MONOCYTES # (AUTO) 0.8 K/uL (0.8-1.0); MONOCYTES % (AUTO) 10.3 % (1.7-9.3); NEUTROPHILS # (AUTO) 5.3 K/uL (1.8-7.7); NEUTROPHILS % (AUTO) 69.9 % (42.2-75.2); PLATELET COUNT (AUTO) 315 K/uL (140-450); RED BLOOD CELL COUNT(AUTO) 4.49 MIL/uL (4.20-5.40); RED CELL DISTRIBUTION WIDTH 18.1 % (11.6-13.7); WHITE BLOOD COUNT (AUTO) 7.6 K/uL (4.8-10.8)
[2019-02-14 07:16] LABS: ALBUMIN 2.4 g/dL (3.4-5.0); ANION GAP 11.8 (8-16); CARBON DIOXIDE 25.3 mmol/L (21-32); CREATININE 0.7 mg/dL (0.6-1.3); MAGNESIUM 1.9 mg/dL (1.8-2.4); PHOSPHORUS 2.4 mg/dL (2.5-4.9); POTASSIUM 3.1 mmol/L (3.5-5.1); TOTAL BILIRUBIN 6.5 mg/dL (0.0-1.0)
--- NOTE | 2019-02-14 07:26 | NUR ---
GAVE BEDSIDE REPORT TO DAY SHIFT RN. PT ENDORSED IN STABLE CONDITION.
--- NOTE | 2019-02-14 07:27 | NUR ---
RECEIVED BED SIDE REPORT FROM LOSS PREVENTION REPRESENTATIVE RN. PT MONGOLIAN SPEAKING, A/O X4, PT AWARE THAT SHE WILL HAVE LAP CHOLY SURGERY TODAY WITH AT 1400. OR CHECKLIST COMPLETED, CONSENT FORM SIGNED AND I NCHART. PT STATES THAT SHE FEELS DIZZY WHEN SHE GETS UP, EDUCATED HER ON THE IMPORTANCE OF USING CALL LIGHT WHEN SHE WANTS TO USE THE RESTROOM. PT AGREED AND VERBALIZED UNDERSTANDING. NPO SIGN POSTED. SKIN INTACT R AC 20G RUNNING D5 1/2 NS AT 80ML/HR. POTASSIUM 3.1, WILL NOTIFY RESIDENTS. ON RA IN NO RESPIRATORY DISTRESS, APPEARS IN NO PAIN. WILL CONTINUE TO MONITOR
[2019-02-14 08:00] VITALS: BP 108/68
[2019-02-14] MEDS: FAMOTIDINE 20 MG TAB PO SCH (08:50)
[2019-02-14] MEDS: LACTOBACILLUS RHAMNOSUS GG 1 EACH CAP PO SCH (08:50)
[2019-02-14 09:06] LABS: HEPATITIS A ANTIBODY IGM Negative (Negative); HEPATITIS B CORE AB TOTAL Negative (Negative); HEPATITIS B SURFACE ANTIBODY Reactive (.); HEPATITIS B SURFACE ANTIGEN Negative (Negative)
[2019-02-14] MEDS ORDERED: POTASSIUM CHLORIDE 10 MEQ TABER PO SCH (10:06)
[2019-02-14] MEDS ORDERED: POTASSIUM CHLORIDE 40 MEQ, LIDOCAINE MPF 1% - 5 mL VIAL 25 MG in NACL 0.9% 250 ML IV SCH (10:30)
[2019-02-14] MEDS ORDERED: LIDOCAINE MPF 1% - 5 mL VIAL 5 ML ONE (11:22)
--- NOTE | 2019-02-14 11:30 | NUR ---
HUNG POTASSIUM RIDER 40mEQ AND POTASSIUM TABLETS PER MD ORDER. EDUCATED PT ON THE IMPORTANCE TO LET ME KNOW IF SHE FEELS PALPITATIONS, WILL CONTINUE TO MONITOR
[2019-02-14] MEDS: ONDANSETRON 4 MG/2 ML VIAL IM/IVP PRN (12:07)
[2019-02-14 12:35] LABS: FOLIC ACID 14.1 ng/mL (>3.0)
--- NOTE | 2019-02-14 12:52 | NUR ---
PT LEFT TO GO TO SURGERY. NOTIFIED PORTRAIT CONSULTANT THAT POTASSIUM RIDER STILL RUNNING. MADE THEM AWARE THAT POTASSIUM CURRENTLY 3.12. PORTRAIT CONSULTANT TOOK IV POLE WITH K RIDER ATTACHED. GAVE PORTRAIT CONSULTANT TICKET TO RIDE PAPER. MEDICATED PT WITH ZOFRAN AND MORPHINE AROUND 12:30, PT COMPLAINED OF 6/10 ABDOMINAL PAIN AND VOMITED ONE TIME. WILL CONTINUE TO MONITOR
--- NOTE | 2019-02-14 12:55 | NUR ---
PT WENT TO SURGERY NO HHN GIVEN
[2019-02-14] MEDS ORDERED: BUPIVACAINE-MPF/EPI 0.25% 30 ML VIAL INJ ONE (13:15)
[2019-02-14] MEDS ORDERED: metroNIDAZOLE 500 MG/NS PREMIX 100 ML IV ONE (13:52)
[2019-02-14] MEDS ORDERED: LEVOFLOXACIN 500 MG/D5W PREMIX 100 ML IV ONE (13:53)
[2019-02-14] MEDS ORDERED: fentaNYL 0.05 MG/ML VIAL ONE (14:01)
[2019-02-14] MEDS ORDERED: PROPOFOL 200 MG/20 ML VIAL IV ONE (14:01)
[2019-02-14] MEDS ORDERED: DEXAMETHASONE 4 MG/ML VIAL ONE (14:01)
[2019-02-14] MEDS ORDERED: DESFLURANE 240 ML BTL INH ONE (14:01)
[2019-02-14] MEDS ORDERED: ROCURONIUM 50 MG/5 ML VIAL IV ONE (14:01)
[2019-02-14] MEDS ORDERED: LIDOCAINE 2% 100 MG/5 ML SYR IVP ONE (14:01)
[2019-02-14] MEDS ORDERED: MIDAZOLAM 2 MG/2 ML VIAL ONE (14:01)
[2019-02-14] MEDS ORDERED: SUCCINYLCHOLINE CHLORIDE 200 MG/10 ML VIAL IVP ONE (14:01)
[2019-02-14] MEDS ORDERED: ONDANSETRON 4 MG/2 ML VIAL ONE (14:01)
[2019-02-14] MEDS ORDERED: ONDANSETRON 4 MG/2 ML VIAL IVP PRN (14:25)
[2019-02-14] MEDS ORDERED: HYDROmorphone 1 MG/ML AMP IVP PRN (14:25)
[2019-02-14] MEDS ORDERED: THROMBIN KIT 20 MU VIAL TP ONE (15:41)
[2019-02-14 16:06] LABS: ANTI DOUBLE STRANDED DNA AB 1 IU/mL (0-9); ANTI-NUCLEAR ANTIBODY,DIRECT Negative (Negative)
[2019-02-14 16:48] VITALS: BP 137/78
--- NOTE | 2019-02-14 16:48 | NUR ---
PT CAME BACK FROM SURGERY. INCISION LOOK CLEAN, SUPER GLUE OF SKIN. NO BLEEDING NOTED. VS STABLE. FRANK CATH INSERTED DURING OR. PT COMPLAINED OF 10/10 INCISIONAL PAIN, WILL GIVE MORPHINE PER MD ORDER.
--- NOTE | 2019-02-14 19:30 | NUR ---
RECEIVED BEDSIDE REPORT FROM BEAR JAUREGUI. PT IS ON ROOM AIR RESPIRATIONS ARE EQUAL AND UNLABORED. IV ON RAC 22G IVF PER ORDERS. S/P LAP EVELYN TODAY WITH 4 SURGICAL INCISION GLUED NO DRAINAGE NOTED HOSE SUSPENDER CUTTER. K 3.1 PT RECEIVED K CARLA AND K MATTY TODAY. PT IS AMBULATORY. FRANK CATH IN PLACE DRAINING CLEAR YELLOW URINE. PLAN OF CARE DISCUSSED WITH PT AND FAMILY. ALL SAFETY MEASURES ARE IN PLACE. WILL CONTINUE TO MONITOR.
--- NOTE | 2019-02-14 20:18 | NUR ---
SCHEDULED MEDICATIONS WERE GIVEN. PT TOLERATED WELL. ENCOURAGED PT TO IS. SAFETY MEASURES ARE IN PLACE. WILL CONTINUE TO MONITOR.
--- NOTE | 2019-02-14 21:49 | NUR ---
GAVE MORPHINE FOR PAIN 04/08. WILL CONTINUE TO MONITOR.
[2019-02-14 22:12] LABS: BASOPHILS % (AUTO) 0.3 % (0.0-2.0); HEMATOCRIT 33.1 % (36-48); HEMOGLOBIN 10.7 g/dL (12.0-16.0); LYMPHOCYTES # (AUTO) 0.3 K/uL (2.5-16.5); LYMPHOCYTES % (AUTO) 4.6 % (20.5-51.1); MEAN CORPUSCULAR HEMOGLOBIN 26 pg (27-31); MEAN CORPUSCULAR HGB CONC 32 g/dL (33-37); MEAN CORPUSCULAR VOLUME 80.4 fL (80-94); MONOCYTES # (AUTO) 0.3 K/uL (0.8-1.0); NEUTROPHILS # (AUTO) 6.8 K/uL (1.8-7.7); NEUTROPHILS % (AUTO) 91.1 % (42.2-75.2); PLATELET COUNT (AUTO) 292 K/uL (140-450); RED BLOOD CELL COUNT(AUTO) 4.12 MIL/uL (4.20-5.40); RED CELL DISTRIBUTION WIDTH 18.1 % (11.6-13.7); WHITE BLOOD COUNT (AUTO) 7.4 K/uL (4.8-10.8)
[2019-02-14 23:41] VITALS: BP 116/63
--- NOTE | 2019-02-14 23:42 | NUR ---
VITAL SIGNS ARE WITHIN NORMAL LIMITS. NO S/S OF DISTRESS. WILL CONTINUE TO MONITOR.
[2019-02-15] MEDS: DEXT 5% / NACL 0.45% 1,000 ML IV SCH (01:00)
--- NOTE | 2019-02-15 02:30 | NUR ---
PT IS SLEEPING COMFORTABLY IN BED. NO S/S OF DISTRESS. CALL LIGHT IS WITHIN REACH.
[2019-02-15] MEDS: MORPHINE SULFATE 2 MG/ML SYR IVP PRN ×2 (03:41→08:23)
[2019-02-15] MEDS: metroNIDAZOLE 500 MG/NS PREMIX 100 ML IV SCH ×2 (03:59→12:59)
--- NOTE | 2019-02-15 04:30 | NUR ---
PT IS RESTING COMFORTABLY IN BED. NO S/S OF DISTRESS. WILL CONTINUE TO MONITOR.
[2019-02-15 06:17] LABS: HEMATOCRIT 30.4 % (36-48); HEMOGLOBIN 9.9 g/dL (12.0-16.0); LYMPHOCYTES # (AUTO) 0.9 K/uL (2.5-16.5); LYMPHOCYTES % (AUTO) 8.6 % (20.5-51.1); MEAN CORPUSCULAR HEMOGLOBIN 26 pg (27-31); MEAN CORPUSCULAR HGB CONC 32 g/dL (33-37); MEAN CORPUSCULAR VOLUME 81.1 fL (80-94); MONOCYTES # (AUTO) 0.8 K/uL (0.8-1.0); MONOCYTES % (AUTO) 7.8 % (1.7-9.3); NEUTROPHILS # (AUTO) 8.4 K/uL (1.8-7.7); NEUTROPHILS % (AUTO) 83.6 % (42.2-75.2); PLATELET COUNT (AUTO) 282 K/uL (140-450); RED BLOOD CELL COUNT(AUTO) 3.75 MIL/uL (4.20-5.40); RED CELL DISTRIBUTION WIDTH 18.1 % (11.6-13.7)
[2019-02-15 06:21] LABS: ALBUMIN 2.1 g/dL (3.4-5.0); ANION GAP 8.5 (8-16); CARBON DIOXIDE 24.9 mmol/L (21-32); CREATININE 0.5 mg/dL (0.6-1.3); MAGNESIUM 1.7 mg/dL (1.8-2.4); PHOSPHORUS 1.9 mg/dL (2.5-4.9); POTASSIUM 3.4 mmol/L (3.5-5.1); TOTAL BILIRUBIN 1.1 mg/dL (0.0-1.0)
[2019-02-15] MEDS ORDERED: HYDR-5122 PO (06:22)
--- NOTE | 2019-02-15 06:34 | NUR ---
D/C MONIKA CATH. EXPLAINED TO PT TO CALL NURSE FOR ASSISTANCE TO USE RESTROOM IT WILL BE FIRST TIME PT GETS UP AFTER SURGERY. PT VERBALIZED UNDERSTANDING. CALL LIGHT IS WITHIN REACH.
[2019-02-15] MEDS ORDERED: MAGNESIUM OXIDE 400 MG TAB PO ONE (06:45)
[2019-02-15] MEDS ORDERED: POTASSIUM CHLORIDE 10 MEQ TABER PO ONE (06:45)
[2019-02-15] MEDS: ALBUTEROL SULFATE/IPRATROPIU 3 ML SOL IH SCH ×2 (06:54→13:18)
--- NOTE | 2019-02-15 07:20 | NUR ---
GAVE BEDSIDE REPORT TO DAY SHIFT RN. PT ENDORSED IN STABLE CONDITION.
[2019-02-15 08:00] VITALS: BP 111/66
[2019-02-15] MEDS: FAMOTIDINE 20 MG TAB PO SCH (08:24)
[2019-02-15] MEDS: LACTOBACILLUS RHAMNOSUS GG 1 EACH CAP PO SCH (08:24)
[2019-02-15] MEDS ORDERED: SODIUM PHOS / POTASSIUM PHOS 1 PKT PDR PO SCH (09:00)
[2019-02-15] MEDS ORDERED: NACL 0.9% 1,000 ML IV SCH (09:30)
[2019-02-15] MEDS ORDERED: MAGN200T5 PO (09:43)
--- NOTE | 2019-02-15 10:06 | NUR ---
CHANGED IVF TO NS AT 70 PER ORDERS. PATIENT AWARE SHE WILL BE DISCHARGED TODAY. EDUCATED PATIENT AND DAUGHTER ON THE IMPORTANCE OF AMBULATION. ALSO EXPLAINED TO PATIENT NOT TO BE SHY TO PASS GAS BECAUSE IT CAUSES PAIN D/T GAS FROM SURGERY. PATIENTS DAUGHTER STATED PATIENT HAD A BM BUT HAS NOT YET PASSED GAS. PATIENTS DAUGHTER SAID SHE IS A LITTLE DIZZY FROM PAIN MEDS AND WILL TRY TO AMBULATE LATER. I TOLD THEM IF PATIENT FEELS WEAK, MYSELF OR OTHER STAFF MEMBERS MAY HELP ASSIST HER WHILE WALKING. DAUGHTER VERBALIZED UNDERSTANDING
--- NOTE | 2019-02-15 11:00 | NUR ---
CAME TO CHECK ON PT AND IV NO LONGER IN PLACE. ASKED KATERINA WHAT HAPPENED TO IV SITE AND SHE SAID THAT SHE NOTED INFILTRATION AT SITE AND DC IV. PT COMPLAINS OF 7/10 INCISIONAL SHARP PAIN. WILL GIVE NORCO PER MD ORDER. PT IN STABLE CONDITION, IN NO RESPIRATORY DISTRESS, FAMILY AT BEDSIDE
[2019-02-15] MEDS ORDERED: HYDROcodone/APAP 7.5/325 MG 1 TAB PO PRN (12:20)
--- NOTE | 2019-02-15 13:31 | NUR ---
EXPLAINED TO PT DC INSTRUCTIONS, NEW MEDICATIONS TO BE STARTED AND SIDE EFFECTS AND F/U APPOINTMENT SHE HAS WITH PCP, AND F/U WORKUP WITH [facility] FOR [facility]. PT VERBALIZED UNDERSTANDING. PT STATES THAT HER PAIN WENT DOWN TO 3 AND HURTS ONLY WHEN SHE MOVES. PT STATED THAT SHE AMBULATED DOWN THE BURNS AND HAS A STEADY GAIT BUT TIRED EASILY. RT CAME TO DO BREATHING TX ON PT. PT IS CURRENTLY CHANGING INTO HER CLOTHES. DC PAPERWORK GIVEN TO HER ALONG WITH RX MED. PT IS CALLING DAUGHTER TO COME PICK HER UP
--- NOTE | 2019-02-15 13:38 | NUR ---
PT STATED THAT SHE TOLERATED LUNCH WELL, FELT NAUSEOUS WHEN EATING THE MEAT BUT NO VOMITING.
--- NOTE | 2019-02-15 14:47 | NUR ---
PT WHEELED OUT OF UNIT BY KATERINA. PT IV OFF, NO BLEEDING NOTED. FAMILY WITH PT. PERSONAL BELONGINGS TAKEN WITH PT IN BAG, DC PACKET TAKEN BY PT.
== END 2019-02-15 14:50 | disposition home or self-care (01) | DRG 263 ==
LOC: MED 14:46 → MTU 16:52
PROVIDERS: ADMIT General Practice; ATTEND General Practice
PROC: BF121ZZ Fluoroscopy of Gallbladder using Low Osmolar Contrast (ICD-10-PCS; 2019-02-14)
PROC: 0FB04ZX Excision of Liver, Percutaneous Endoscopic Approach, Diagnostic (ICD-10-PCS; 2019-02-14)
PROC: 0FT44ZZ Resection of Gallbladder, Percutaneous Endoscopic Approach (ICD-10-PCS; principal; 2019-02-14 14:00)
DX: K80.00 Calculus of gallbladder with acute cholecystitis without obstruction (principal); E43 Unspecified severe protein-calorie malnutrition; K75.4 Autoimmune hepatitis; E83.39 Other disorders of phosphorus metabolism; J45.909 Unspecified asthma, uncomplicated; K21.9 Gastro-esophageal reflux disease without esophagitis; R73.9 Hyperglycemia, unspecified; D64.9 Anemia, unspecified; E87.6 Hypokalemia; D18.00 Hemangioma unspecified site; E83.42 Hypomagnesemia; Z68.23 Body mass index [BMI] 23.0-23.9, adult; Z88.0 Allergy status to penicillin; Z88.8 Allergy status to other drugs, medicaments and biological substances; Z91.012 Allergy to eggs; Z88.5 Allergy status to narcotic agent; Z80.3 Family history of malignant neoplasm of breast
CPT/HCPCS: 36415; 76705; 77003; 78445; 80048; 80053; 80305; 81003; 82150; 82607; 82728; 82746; 83036; 83540; 83690; 83735; 84100; 84443; 85025; 85045; 85610; 85730; 86038; 86704; 86706; 86708; 86709; 86803; 86886; 86900; 86901; 87081; 87340; 88304; 88307; 88313; 93005; 94640; 96361; 96374; 96375; 99285; C1887; J0330; J1100; J1644; J1956; J2001; J2250; J2270; J2405; J2704; J3010; J3480; J3490; J7030; J7620; Q0092; Q9967

== ENCOUNTER 2019-04-11 07:10 | Emergency (ER) | payer MEDICAID ==
[~2019-04-11] VITALS: Ht 162.6 cm; Wt 58.3 kg
[~2019-04-11 07:10] MED LIST changes: +HYDR-5122 PO; +MAGN200T5 PO
[2019-04-11 07:15] VITALS: BP 118/70
--- NOTE | 2019-04-11 07:30 | NUR ---
BIB DAUGHTER. AAO X4 C/O SOB, DRY COUGH, AND SORE THROAT, PAINFUL SWALLOWING X YESTERDAY. EQUAL SHIRLEY LUNG SOUNDS UPON AUSCULTATION. PT DENIES FEVER, N/V/D. PER PT, SHE TOOK A BREATHING TX, DULERA INHALER, THIS AM WITH NO RELIEF. PT PLACED ON FULL BACK HAND. ER TO EVALUATE PT.
--- NOTE | 2019-04-11 07:30 | NUR ---
Patient ambulated to bed 8 with family. RN evaluating patient at bedside.
--- NOTE | 2019-04-11 07:31 | NUR ---
Dr. Farley evaluating patient at bedside.
[2019-04-11] MEDS ORDERED: IPRATROPIUM 0.02% 0.5 MG/2.5 ML NEBU INH ONE (07:35)
[2019-04-11] MEDS ORDERED: ALBUTEROL 0.083% 2.5 MG/3 ML NEBU INH ONE (07:35)
[2019-04-11] MEDS ORDERED: predniSONE 20 MG TAB PO ONE (07:35)
--- NOTE | 2019-04-11 07:42 | NUR ---
Germania edwards in [facility], [place] - 04/11/19 at 0759 by MED1 RT AT BEDSIDE FOR BREATHING TREATMENT.
--- NOTE | 2019-04-11 07:42 | NUR ---
Breathing treatment administered at bedside by respiratory therapist.
--- NOTE | 2019-04-11 07:53 | NUR ---
PT AMBULATED TO THE BATHROOM WITH STEADY GAIT.
--- NOTE | 2019-04-11 07:57 | NUR ---
PT AMBULATED BACK TO ROOM WITH STEADY GAIT.
--- NOTE | 2019-04-11 08:00 | NUR ---
PT STATES RELIEF FROM BREATHING TREATMENT. PT STATES NO SOB AT THIS TIME. O2 SAT AT 98% RA, FULL CLEAR SPEECH. PT ON FULL RELIEF MAP MODELER FOR MONITORING.
[2019-04-11 08:18] VITALS: BP 131/73
--- NOTE | 2019-04-11 08:18 | NUR ---
Patient discharged with v/s stable. Written and verbal after care instructions given and explained. Patient alert, oriented and verbalized understanding of instructions. Ambulatory with steady gait. All questions addressed prior to discharge. ID band removed. Patient advised to follow up with PMD. Rx of ALBUTEROL 90MCG INHALER, ALBUTEROL SULFATE 0.63MG/3ML MARIE FOR INHALATION, PREDNISONE given. Patient educated on indication of medication including possible reaction and side effects. Opportunity to ask questions provided and answered.
== END 2019-04-11 08:18 | disposition home or self-care (01) ==
LOC: MED 07:10
DX: J45.901 Unspecified asthma with (acute) exacerbation (principal); Z88.0 Allergy status to penicillin; Z88.5 Allergy status to narcotic agent; Z88.6 Allergy status to analgesic agent; Z91.012 Allergy to eggs; Z79.899 Other long term (current) drug therapy
CPT/HCPCS: 94640; 99283; J7512; J7613; J7644

== ENCOUNTER 2019-04-16 21:20 | Emergency (ER) | payer MEDICAID ==
[~2019-04-16] VITALS: Ht 157.5 cm; Wt 54.4 kg
[~2019-04-16 21:20] MED LIST changes: -HYDR-5122 PO; -MAGN200T5 PO
[2019-04-16 21:25] VITALS: BP 128/87
--- NOTE | 2019-04-16 21:28 | NUR ---
TO LOBBY A/W BED, AMBULATORY
--- NOTE | 2019-04-16 23:37 | NUR ---
PT AMBULATED TO ER BED 9
--- NOTE | 2019-04-16 23:55 | NUR ---
48 Y/O FEMALE PRESENTED TO ED, C/O LOWER ABD PAIN RADIATING TO LOWER BACK SINCE LAST WEDNESDAY, STATED SHE FELT A BUMP FROM THE INSIDE OF HER OPERATIVE SITE (S/P CHOLECYSTECTOMY) LAST MONTH, PT REFERRING TO THE UMBILICAL AREA, NO C/O N/V/D/CONSTIPATION, AAOX4, GCS 15, RR EVEN UNLABORED, ED MD DR. PRESSLEY MADE AWARE, WILL CONTINEU TO MONITOR CLOSELY, BED LOCKED IN LOWEST POSITION, BED SIDERAIL UPX1.
--- NOTE | 2019-04-16 23:58 | NUR ---
DR. PRESSLEY BEDSIDE EVALUATING PT
--- NOTE | 2019-04-17 00:12 | NUR ---
PT TAKEN TO RAD VIA W/C
[2019-04-17 00:22] LABS: APPEARANCE,URINE SL CLOUDY (CLEAR); BILIRUBIN,URINE NEGATIVE (NEGATIVE); BLOOD, URINE 3+ (NEGATIVE); COLOR,URINE YELLOW (YELLOW); LEUKOCYTE ESTERASE ,URINE TRACE (NEGATIVE); NITRITE, URINE NEGATIVE (NEGATIVE); UGLUCOSE NEGATIVE (NEGATIVE)
[2019-04-17 00:22] LABS: BASOPHILS # (AUTO) 0.1 K/uL (0.00-0.22); EOSINOPHILS # (AUTO) 0.2 K/uL (0-0.4); HEMOGLOBIN 12.2 g/dL (12.0-16.0); MEAN CORPUSCULAR HEMOGLOBIN 25 pg (27-31); MEAN CORPUSCULAR HGB CONC 31 g/dL (33-37); MONOCYTES # (AUTO) 0.7 K/uL (0.8-1.0); RED BLOOD CELL COUNT(AUTO) 4.96 MIL/uL (4.20-5.40)
[2019-04-17 00:28] LABS: BASOPHILS % (AUTO) 0.9 % (0.0-2.0); EOSINOPHILS % (AUTO) 2.2 % (0.0-4.0); HEMATOCRIT 38.9 % (36-48); LYMPHOCYTES # (AUTO) 2.8 K/uL (2.5-16.5); LYMPHOCYTES % (AUTO) 29.3 % (20.5-51.1); MEAN CORPUSCULAR VOLUME 78.4 fL (80-94); NEUTROPHILS # (AUTO) 5.8 K/uL (1.8-7.7); NEUTROPHILS % (AUTO) 60.6 % (42.2-75.2); PLATELET COUNT (AUTO) 384 K/uL (140-450); RED CELL DISTRIBUTION WIDTH 18.5 % (11.6-13.7); WHITE BLOOD COUNT (AUTO) 9.6 K/uL (4.8-10.8)
[2019-04-17 00:30] LABS: ANION GAP 11.7 (8-16); CARBON DIOXIDE 28.3 mmol/L (21-32); CREATININE 0.6 mg/dL (0.6-1.3)
[2019-04-17] MEDS: MORPHINE SULFATE 4 MG/ML SYR IVP ONE (00:32)
[2019-04-17] MEDS: NACL 0.9% 1,000 ML IV SCH (00:34)
[2019-04-17 00:37] LABS: ALBUMIN 3.5 g/dL (3.4-5.0); TOTAL BILIRUBIN 0.6 mg/dL (0.0-1.0)
[2019-04-17 00:41] LABS: RBC,URINE TOO NUMEROUS TO COUN /HPF (0-5)
--- NOTE | 2019-04-17 01:29 | NUR ---
PT IN BED RESTING, WITH DAUGHTER AT BEDSIDE, VSS, NO C/O PAIN AT THIS TIME.
[2019-04-17] MEDS: POTASSIUM CHLORIDE 10 MEQ TABER PO ONE (02:16)
[2019-04-17 02:20] VITALS: BP 106/64
--- NOTE | 2019-04-17 02:25 | NUR ---
DPatient discharged with v/s stable. Written and verbal after care instructions given and explained. Patient alert, oriented and verbalized understanding of instructions. Ambulatory with steady gait, ACCOMPANIED BY . All questions addressed prior to discharge. ID band removed. Rx of CIPRO 500MG, ZOFRAN 8MG AND NORCO 5MG-325MG given. Patient educated on indication of medication including possible reaction and side effects. COPY OF CT REPORT AND IMAGE PROVIDED. PT ADVISED TO FOLLOW UP WITH PMD Opportunity to ask questions provided and answered.
== END 2019-04-17 02:25 | disposition home or self-care (01) ==
LOC: MED 21:20
DX: N39.0 Urinary tract infection, site not specified (principal); J45.909 Unspecified asthma, uncomplicated; Z90.49 Acquired absence of other specified parts of digestive tract; Z88.0 Allergy status to penicillin; Z88.5 Allergy status to narcotic agent; Z88.6 Allergy status to analgesic agent; Z91.012 Allergy to eggs; Z79.899 Other long term (current) drug therapy
CPT/HCPCS: 36415; 74176; 80053; 81001; 81025; 83690; 85025; 87086; 96374; 99284; J2270; J7030

== ENCOUNTER 2019-09-25 02:45 | Emergency (ER) | payer MEDICAID ==
[~2019-09-25] VITALS: Ht 157.5 cm; Wt 60.8 kg
[2019-09-25 03:00] VITALS: BP 137/85
--- NOTE | 2019-09-25 03:00 | NUR ---
49 Y/O FEMALE T C/O ASTHMA EXACERBATION STARTED YESTERDAY. CLEAR/DIMINISHED BREATH SOUNDS IN THE BASES. 98% ON RA; 18 RR. DENIES N/V/D. ERMD MADE AWARE OF STATUS. SIDE RAILSX1. WILL CONTINUE TO MONITOR. MEDHX: ASTHMA RX:VENTOLIN ALLERGEIS:EGG PRODUCTS; PCN
[2019-09-25] MEDS ORDERED: ALBUTEROL SULFATE/IPRATROPIU 3 ML SOL IH ONE (03:10)
--- NOTE | 2019-09-25 03:27 | NUR ---
RT AT BEDSIDE.
--- NOTE | 2019-09-25 03:39 | NUR ---
FLU SWAB COLLECTED AND SENT TO LAB.
[2019-09-25] MEDS ORDERED: predniSONE 20 MG TAB PO ONE (04:15)
--- NOTE | 2019-09-25 04:17 | NUR ---
WENT TO PULL PREDNISONE, NONE LEFT IN OMNICELL. CASING SOAKER CALLED TO RECEIVE MED
[2019-09-25 04:45] VITALS: BP 137/85
--- NOTE | 2019-09-25 04:45 | NUR ---
Patient discharged with v/s stable. Written and verbal after care instructions given and explained. Patient alert, oriented and verbalized understanding of instructions. Ambulatory with steady gait. All questions addressed prior to discharge. ID band removed. Patient advised to follow up with PMD. Rx of PREDNISONE; ALBUTEROL; given. Patient educated on indication of medication including possible reaction and side effects. Opportunity to ask questions provided and answered.
== END 2019-09-25 04:45 | disposition home or self-care (01) ==
LOC: MED 02:45
DX: J45.901 Unspecified asthma with (acute) exacerbation (principal); Z79.899 Other long term (current) drug therapy; Z88.0 Allergy status to penicillin; Z88.5 Allergy status to narcotic agent; Z88.6 Allergy status to analgesic agent
CPT/HCPCS: 87804; 94640; 99283; J7512; J7620

== ENCOUNTER 2019-09-25 08:56 | Emergency (ER) | payer MEDICAID ==
[~2019-09-25] VITALS: Ht 157.5 cm; Wt 59.0 kg
[2019-09-25 08:59] VITALS: BP 133/80
--- NOTE | 2019-09-25 09:00 | NUR ---
Patient ambulated to bed 2. RN evaluating patient at bedside.
--- NOTE | 2019-09-25 09:05 | NUR ---
49 Y/O FEMALE C/O SOB X TODAY. PT STATES SHE WAS HERE EARLY AT 3AM FOR THE SAME REASON AND GOT A BREATHING TX AND WAS PRESCRIBE MEDS. PT STILL IS SOB, TACHYPNEA, SPO2 96% RA. NO USE OF ACCESSORY MUSCLE. VSS. LUNG SOUNDS ARE WHEEZING THORUGHOUT. A 7 O X4. STEADY GAIT. ALLERGIES: PMH: ASTHMA.
[2019-09-25] MEDS ORDERED: ALBUTEROL 0.083% 2.5 MG/3 ML NEBU INH ONE (09:20)
[2019-09-25] MEDS ORDERED: IPRATROPIUM 0.02% 0.5 MG/2.5 ML NEBU INH ONE (09:20)
--- NOTE | 2019-09-25 09:23 | NUR ---
X ray at pt bedside
--- NOTE | 2019-09-25 09:31 | NUR ---
RT at bedside for breathing tx
--- NOTE | 2019-09-25 09:34 | NUR ---
Breathing treatment administered by respiratory therapist at bedside.
[2019-09-25 10:15] VITALS: BP 133/80
--- NOTE | 2019-09-25 10:15 | NUR ---
Patient discharged with v/s stable. Written and verbal after care instructions given and explained. Patient alert, oriented and verbalized understanding of instructions. Ambulatory with steady gait. All questions addressed prior to discharge. ID band removed. Patient advised to follow up with PMD. Rx of AZITHROMYCIN given. Patient educated on indication of medication including possible reaction and side effects. Opportunity to ask questions provided and answered.
== END 2019-09-25 10:15 | disposition home or self-care (01) ==
LOC: MED 08:56
DX: J18.9 Pneumonia, unspecified organism (principal); J45.909 Unspecified asthma, uncomplicated; Z88.0 Allergy status to penicillin; Z88.5 Allergy status to narcotic agent; Z91.012 Allergy to eggs; Z88.8 Allergy status to other drugs, medicaments and biological substances
CPT/HCPCS: 71045; 94640; 99283; J7613; J7644; Q0092

== ENCOUNTER 2020-02-28 07:00 | Emergency (ER) | payer MEDICAID ==
[~2020-02-28] VITALS: Ht 160 cm; Wt 62.8 kg
[2020-02-28 07:20] VITALS: BP 132/87
--- NOTE | 2020-02-28 07:48 | NUR ---
pt ambulated to bed 9 with steady gait.
--- NOTE | 2020-02-28 07:52 | NUR ---
dr ramos at bedside evaluating pt.
[2020-02-28] MEDS ORDERED: ALBUTEROL HFA MDI 90 MCG/ACTUATION 8 GM INH ONE (07:55)
[2020-02-28] MEDS ORDERED: predniSONE 20 MG TAB PO ONE (07:55)
--- NOTE | 2020-02-28 08:00 | NUR ---
C/O SOB & BACK PAIN X TODAY. TEMP 98.2, P 77, O2 SAT 98%.PT AOX4 , AFIBRILE, AMBULATORY WITH STEADY GAIT.SCE ,WHEEZES BLF ,FLAT SOFT ABDOMEN. PMHXS ASTHMA
--- NOTE | 2020-02-28 08:03 | NUR ---
rt at bedside
--- NOTE | 2020-02-28 08:35 | NUR ---
Patient discharged with v/s stable. Written and verbal after care instructions given and explained regarding asthma . Patient alert, oriented and verbalized understanding of instructions. Ambulatory with steady gait. All questions addressed prior to discharge. ID band removed. Patient advised to follow up with PMD. Rx of prednisone given. Patient educated on indication of medication including possible reaction and side effects. Opportunity to ask questions provided and answered.
[2020-02-28 08:36] VITALS: BP 132/87
== END 2020-02-28 08:35 | disposition home or self-care (01) ==
LOC: MED 07:00
DX: J45.901 Unspecified asthma with (acute) exacerbation (principal); Z88.0 Allergy status to penicillin; Z88.5 Allergy status to narcotic agent; Z88.6 Allergy status to analgesic agent; Z91.018 Allergy to other foods; Z91.012 Allergy to eggs; Z79.899 Other long term (current) drug therapy
CPT/HCPCS: 94664; 99283; J7512